=== PATIENT | female | born 1930 | race African-American/Black ===

== ENCOUNTER 2016-11-16 09:19 | Emergency (ER) | payer OTHER, MEDICAID ==
[~2016-11-16] VITALS: Ht 149.9 cm; Wt 69.0 kg
[2016-11-16] MEDS ORDERED: ACETAMINOPHEN 500MG TABLET PO ONE (11:45)
[2016-11-16 14:26] VITALS: BP 131/70
== END 2016-11-16 14:27 | disposition home or self-care (01) ==
LOC: ER 09:20
DX: S60.221A Contusion of right hand, initial encounter (principal); I10 Essential (primary) hypertension; W01.0XXA Fall on same level from slipping, tripping and stumbling without subsequent striking against object, initial encounter; Y93.89 Activity, other specified; Y99.9 Unspecified external cause status; Y92.89 Other specified places as the place of occurrence of the external cause
CPT/HCPCS: 29125; 70450; 73090; 73110; 73130; 73522; 99284

== ENCOUNTER 2018-08-10 11:23 | Emergency (ER) | payer OTHER, MEDICAID ==
[~2018-08-10] VITALS: Ht 149.9 cm; Wt 69.0 kg
[2018-08-10] MEDS: SODIUM CHLORIDE 0.9% 1,000 ML IV ONE ×2 (12:25→12:30)
[2018-08-10] MEDS: HYDROCODONE/ACETAMINOPHEN 5/325MG TABLET PO STA ×2 (12:25→12:30)
[2018-08-10 12:30] LABS: EOSINOPHILS % 1.3 % (0.0-5.0); HEMATOCRIT. 35.4 % (36.0-48.0); LYMPHOCYTES % 16.5 % (20.0-50.0); MEAN CORPUSCULAR HEMOGLOBIN 30.8 pg (28.0-32.0); MEAN CORPUSCULAR VOLUME 90.7 fL (81.0-99.0); MEAN PLATELET VOLUME 8.4 fl (7.4-10.4); MONOCYTES % 9.9 % (2.0-8.0); NEUTROPHILS % 71.3 % (40.0-76.0); PLATELET 244 x1000/uL (130-400); RED CELL DISTRIBUTION WIDTH 14.1 % (11.6-14.6)
[2018-08-10 12:34] LABS: PROTHROMBIN TIME 10.3 sec (9.1-11.1)
[2018-08-10 12:37] LABS: CHLORIDE 106 mEq/L (98-107)
[2018-08-10 16:40] VITALS: BP 141/84
== END 2018-08-10 16:50 | disposition home or self-care (01) ==
LOC: ER 16:07
DX: R05 Cough (principal); R10.13 Epigastric pain; J44.9 Chronic obstructive pulmonary disease, unspecified; K57.30 Diverticulosis of large intestine without perforation or abscess without bleeding; K44.9 Diaphragmatic hernia without obstruction or gangrene; I10 Essential (primary) hypertension; Z90.49 Acquired absence of other specified parts of digestive tract; Z87.81 Personal history of (healed) traumatic fracture
CPT/HCPCS: 36415; 71045; 74176; 80053; 83605; 84484; 85025; 85610; 93005; 99284; J7030